=== PATIENT | female | born 1965 | race Caucasian/White ===

== ENCOUNTER 2021-10-24 02:29 | Inpatient (IN) | payer OTHER ==
[2021-10-24 03:03] LABS: #Basophils 0.1 thou/uL (0.0-0.2); #Eosinphils 0.4 thou/uL (0.0-0.7); #Lymphocytes 3.1 thou/uL (1.20-3.40); #Monocytes 0.9 thou/uL (0.11-0.59); #Neutrophils 5.7 thou/uL (1.40-6.50); %Basophils 1.1 % (0.0-1.0); %Eosinophils 3.8 % (0.0-10.0); %Lymphocytes 30.1 % (21.0-51.0); %Monocytes 9.1 % (0.0-10.0); %Neutrophils 55.9 % (42.0-75.0); Hemoglobin 11.6 g/dL (12.0-16.0); Mean Corpuscular HGB CONC 34.9 g/dL (32.0-36.0); Mean Corpuscular Volume 97.3 fL (78.0-98.0); Mean Platelet Volume 8.5 fL (7.4-10.4); Platelet Count 165 thou/uL (130-400); RBC Distribution Width 14.7 % (11.5-14.5); Red Blood Cell (RBC) Count 3.41 mill/uL (4.20-5.40); White Blood Cell (WBC) Count 10.3 thou/uL (4.8-10.8)
[2021-10-24] MEDS ORDERED: Boostrix 0.5 ML (Tdap) VIAL (>/=7 yrs of age) ONE (03:11)
[2021-10-24 03:25] LABS: ALT (SGPT) 127 U/L (8-55); AST (SGOT) 171 U/L (5-34); Acetaminophen Less than 10.0 mcg/mL (10.0-30.0); Albumin 3.6 g/dL (3.5-5.0); Alcohol 288 mg/dL (Less than 10); Alkaline Phosphatase 160 U/L (40-110); Anion Gap 17 mmol/L (10-20); BUN (Urea Nitrogen) 19 mg/dL (9.8-20.1); Bilirubin, Total 0.8 mg/dL (0.2-1.2); Calc. Creatinine Clearance 0 mL/min (70-130); Calcium 8.6 mg/dL (7.8-10.44); Carbon Dioxide 14 mmol/L (22-29); Chloride 104 mmol/L (98-107); Estimated GFR 49; Globulin 5.3 g/dL (2.4-3.5); Glucose 127 mg/dL (70-105); Potassium 3.7 mmol/L (3.5-5.1); Protein, Total 8.9 g/dL (6.0-8.3); Salicylate Less than 8.0 mg/dL (15.0-30.0); Sodium 131 mmol/L (136-145)
[2021-10-24] MEDS ORDERED: Ondansetron PF 4 MG/2 ML Vial ONE ×2 (03:50→03:52)
[2021-10-24] MEDS ORDERED: Morphine 4 MG/ML VIAL ONE (03:50)
[2021-10-24] MEDS ORDERED: Fentanyl 100 MCG/2 ML VIAL ONE (03:51)
[2021-10-24] MEDS ORDERED: hydrALAZINE 20 MG/ML VIAL SLOW IVP PRN (03:52)
[2021-10-24] MEDS ORDERED: traMADol HCl 50 MG TAB PO PRN (03:55)
[2021-10-24] MEDS ORDERED: Sodium Chloride 0.9% 1,000 ML IV SCH ×2 (04:00→16:15)
[2021-10-24] MEDS ORDERED: Acetaminophen 500 MG TAB ONE (04:31)
[2021-10-24] MEDS: Oxazepam 10 MG CAP PO SCH ×2 (05:24→14:22)
[2021-10-24] MEDS ORDERED: traMADol HCl 50 MG TAB PO SCH (06:00)
[2021-10-24] MEDS ORDERED: Acetaminophen 500 MG TAB PO SCH (06:00)
[2021-10-24 06:01] VITALS: BMI 26.4
[2021-10-24] MEDS: Morphine 2 MG/ML VIAL SLOW IVP PRN ×5 (06:05→17:14)
[2021-10-24 07:26] LABS: SARS-CoV-2 NAA Rapid Test Not Detected (NotDetected)
[2021-10-24] MEDS: Folic Acid 1 MG TAB PO SCH (08:23)
[2021-10-24] MEDS: Thiamine 100 MG TAB PO SCH (08:23)
[2021-10-24] MEDS: Senokot S 8.6-50 MG TAB PO SCH ×2 (08:23→21:25)
[2021-10-24] MEDS: Polyethylene Glycol 3350 17 GM Packet PO SCH (08:24)
[2021-10-24] MEDS: Cyclobenzaprine 10 MG TAB PO PRN (08:24)
[2021-10-24] MEDS: Gabapentin 300 MG CAP PO SCH ×3 (08:24→21:25)
[2021-10-24] MEDS ORDERED: Famotidine 20 MG TAB PO SCH (09:00)
[2021-10-24] MEDS: Acetaminophen/Codeine 30-300mg Tablet PO SCH ×3 (11:29→23:54)
[2021-10-24] MEDS: Acetaminophen 325 MG TAB PO SCH ×3 (11:30→23:54)
[2021-10-24] MEDS ORDERED: Acetaminophen/Codeine 30-300mg Tablet PO SCH (12:00)
[2021-10-24] MEDS ORDERED: Lorazepam 1 MG TAB PO SCH (12:15)
[2021-10-24] MEDS ORDERED: Iopamidol-370 76% 500 ML 1 ML ONE (14:28)
[2021-10-24] MEDS ORDERED: Lorazepam 0.5 MG TAB PO PRN (16:14)
[2021-10-24] MEDS: Ondansetron PF 4 MG/2 ML Vial IVP PRN (21:28)
[2021-10-24] MEDS: Heparin 5,000 UNITS/ML VIAL SC SCH (21:28)
[2021-10-24] MEDS: OLANZapine 5 MG TAB PO SCH (21:28)
[2021-10-25] MEDS: Acetaminophen 325 MG TAB PO SCH ×4 (05:25→23:28)
[2021-10-25] MEDS: Acetaminophen/Codeine 30-300mg Tablet PO SCH ×4 (05:28→23:28)
[2021-10-25 06:10] LABS: #Eosinphils 0.3 thou/uL (0.0-0.7); #Lymphocytes 1.6 thou/uL (1.20-3.40); #Monocytes 0.5 thou/uL (0.11-0.59); #Neutrophils 2.9 thou/uL (1.40-6.50); %Basophils 0.6 % (0.0-1.0); %Eosinophils 5.2 % (0.0-10.0); %Lymphocytes 30.3 % (21.0-51.0); %Monocytes 9.1 % (0.0-10.0); %Neutrophils 54.9 % (42.0-75.0); Hemoglobin 10.4 g/dL (12.0-16.0); Mean Corpuscular HGB CONC 32.6 g/dL (32.0-36.0); Mean Corpuscular Hemoglobin 33.2 pg (27.0-31.0); Mean Platelet Volume 9.3 fL (7.4-10.4); Platelet Count 114 thou/uL (130-400); RBC Distribution Width 14.6 % (11.5-14.5); Red Blood Cell (RBC) Count 3.13 mill/uL (4.20-5.40); White Blood Cell (WBC) Count 5.2 thou/uL (4.8-10.8)
[2021-10-25 06:28] LABS: Phosphorus 3.2 mg/dL (2.3-4.7)
[2021-10-25 06:32] LABS: BUN (Urea Nitrogen) 21 mg/dL (9.8-20.1); Calc. Creatinine Clearance 61 mL/min (70-130); Carbon Dioxide 14 mmol/L (22-29); Chloride 104 mmol/L (98-107); Estimated GFR 65; Glucose 113 mg/dL (70-105); Potassium 4.9 mmol/L (3.5-5.1); Sodium 128 mmol/L (136-145)
[2021-10-25 06:41] LABS: Anion Gap 15 mmol/L (10-20)
[2021-10-25] MEDS ORDERED: Famotidine 20 MG TAB PO SCH (09:00)
[2021-10-25] MEDS ORDERED: Gabapentin 300 MG CAP PO SCH (09:00)
[2021-10-25] MEDS: Gabapentin 300 MG CAP PO SCH ×2 (10:05→21:37)
[2021-10-25] MEDS: Heparin 5,000 UNITS/ML VIAL SC SCH ×2 (10:05→21:35)
[2021-10-25] MEDS: Thiamine 100 MG TAB PO SCH (10:05)
[2021-10-25] MEDS: Polyethylene Glycol 3350 17 GM Packet PO SCH (10:05)
[2021-10-25] MEDS: Senokot S 8.6-50 MG TAB PO SCH ×2 (10:05→21:38)
[2021-10-25] MEDS: Folic Acid 1 MG TAB PO SCH (10:06)
[2021-10-25] MEDS: Loratadine 10 MG TAB PO SCH (10:06)
[2021-10-25] MEDS: Acetaminophen/Codeine 30-300mg Tablet PO PRN ×2 (12:03→17:38)
[2021-10-25] MEDS ORDERED: Ibuprofen 600 MG TAB PO SCH (14:00)
[2021-10-25] MEDS: Ibuprofen 200 MG TAB PO SCH ×2 (14:37→21:38)
[2021-10-25] MEDS: traMADol HCl 50 MG TAB PO SCH ×2 (14:38→21:38)
[2021-10-25] MEDS: Oxazepam 10 MG CAP PO SCH ×2 (14:40→21:36)
[2021-10-25] MEDS: cloNIDine 0.1 MG TAB PO SCH ×2 (14:41→21:37)
[2021-10-25] MEDS: OLANZapine 5 MG TAB PO SCH (21:38)
[2021-10-26] MEDS: Acetaminophen 325 MG TAB PO SCH ×3 (05:20→18:24)
[2021-10-26] MEDS: Acetaminophen/Codeine 30-300mg Tablet PO SCH ×3 (05:20→18:25)
[2021-10-26] MEDS: Ibuprofen 200 MG TAB PO SCH (05:21)
[2021-10-26] MEDS: Oxazepam 10 MG CAP PO SCH ×3 (05:21→21:52)
[2021-10-26] MEDS: traMADol HCl 50 MG TAB PO SCH ×3 (05:21→21:53)
[2021-10-26] MEDS: cloNIDine 0.1 MG TAB PO SCH ×3 (05:22→21:52)
[2021-10-26 06:21] LABS: #Eosinphils 0.2 thou/uL (0.0-0.7); #Lymphocytes 1.2 thou/uL (1.20-3.40); #Monocytes 0.4 thou/uL (0.11-0.59); #Neutrophils 2.6 thou/uL (1.40-6.50); %Basophils 0.7 % (0.0-1.0); %Eosinophils 4.6 % (0.0-10.0); %Lymphocytes 27.2 % (21.0-51.0); %Monocytes 9.3 % (0.0-10.0); %Neutrophils 58.2 % (42.0-75.0); Hemoglobin 9.3 g/dL (12.0-16.0); Mean Corpuscular HGB CONC 32.7 g/dL (32.0-36.0); Mean Platelet Volume 8.9 fL (7.4-10.4); Platelet Count 108 thou/uL (130-400); RBC Distribution Width 14.2 % (11.5-14.5); Red Blood Cell (RBC) Count 2.81 mill/uL (4.20-5.40); White Blood Cell (WBC) Count 4.4 thou/uL (4.8-10.8)
[2021-10-26 06:38] LABS: Anion Gap 15 mmol/L (10-20); BUN (Urea Nitrogen) 25 mg/dL (9.8-20.1); Calc. Creatinine Clearance 44 mL/min (70-130); Calcium 8.2 mg/dL (7.8-10.44); Carbon Dioxide 19 mmol/L (22-29); Chloride 103 mmol/L (98-107); Estimated GFR 43; Glucose 146 mg/dL (70-105); Magnesium 2.1 mg/dL (1.6-2.6); Phosphorus 4.2 mg/dL (2.3-4.7); Potassium 3.9 mmol/L (3.5-5.1); Sodium 133 mmol/L (136-145)
[2021-10-26] MEDS: Heparin 5,000 UNITS/ML VIAL SC SCH ×2 (08:32→21:54)
[2021-10-26] MEDS: Cyclobenzaprine 10 MG TAB PO PRN ×2 (08:32→16:21)
[2021-10-26] MEDS: Loratadine 10 MG TAB PO SCH (08:32)
[2021-10-26] MEDS: Senokot S 8.6-50 MG TAB PO SCH ×2 (08:33→21:51)
[2021-10-26] MEDS: Gabapentin 300 MG CAP PO SCH ×2 (08:33→21:53)
[2021-10-26] MEDS: Folic Acid 1 MG TAB PO SCH (08:34)
[2021-10-26] MEDS: Polyethylene Glycol 3350 17 GM Packet PO SCH (08:34)
[2021-10-26] MEDS: Thiamine 100 MG TAB PO SCH (08:34)
[2021-10-26] MEDS ORDERED: Potassium Chloride 20 MEQ TAB PO SCH (09:15)
[2021-10-26] MEDS ORDERED: Sodium Phosphate 30 MMOL in Sodium Chloride 0.9% 250 ML 250 ML IVPB SCH (09:15)
[2021-10-26] MEDS: Acetaminophen/Codeine 30-300mg Tablet PO PRN ×2 (11:54→18:25)
[2021-10-26] MEDS ORDERED: Morphine 2 MG/ML VIAL SLOW IVP SCH (20:00)
[2021-10-26 20:01] LABS: Troponin I Less than 0.010 ng/mL (< 0.028)
[2021-10-26] MEDS: OLANZapine 5 MG TAB PO SCH (21:52)
[2021-10-26] MEDS: Melatonin 3 MG TAB PO SCH (21:52)
[2021-10-27] MEDS: Acetaminophen 325 MG TAB PO SCH ×5 (00:26→23:59)
[2021-10-27] MEDS: Acetaminophen/Codeine 30-300mg Tablet PO SCH ×5 (00:27→20:02)
[2021-10-27] MEDS: traMADol HCl 50 MG TAB PO SCH ×3 (05:48→22:12)
[2021-10-27] MEDS: Oxazepam 10 MG CAP PO SCH ×3 (05:48→22:13)
[2021-10-27] MEDS: cloNIDine 0.1 MG TAB PO SCH ×3 (05:48→22:12)
[2021-10-27 06:26] LABS: Anion Gap 13 mmol/L (10-20); BUN (Urea Nitrogen) 23 mg/dL (9.8-20.1); Calc. Creatinine Clearance 54 mL/min (70-130); Calcium 8.3 mg/dL (7.8-10.44); Carbon Dioxide 21 mmol/L (22-29); Chloride 105 mmol/L (98-107); Estimated GFR 56; Glucose 104 mg/dL (70-105); Magnesium 2.2 mg/dL (1.6-2.6); Phosphorus 3.6 mg/dL (2.3-4.7); Potassium 4.6 mmol/L (3.5-5.1); Sodium 134 mmol/L (136-145)
[2021-10-27] MEDS: Loratadine 10 MG TAB PO SCH (10:07)
[2021-10-27] MEDS: Heparin 5,000 UNITS/ML VIAL SC SCH ×2 (10:09→20:03)
[2021-10-27] MEDS: Polyethylene Glycol 3350 17 GM Packet PO SCH (10:09)
[2021-10-27] MEDS: Gabapentin 300 MG CAP PO SCH (10:09)
[2021-10-27] MEDS: Thiamine 100 MG TAB PO SCH (10:10)
[2021-10-27] MEDS: Senokot S 8.6-50 MG TAB PO SCH ×2 (10:10→20:04)
[2021-10-27] MEDS: Folic Acid 1 MG TAB PO SCH (10:10)
[2021-10-27] MEDS: Ondansetron PF 4 MG/2 ML Vial IVP PRN (10:17)
[2021-10-27] MEDS ORDERED: Magnesium Citrate 300 ML BOT PO SCH (11:15)
[2021-10-27] MEDS: Mineral Oil ENEMA PR SCH ×2 (15:17→17:20)
[2021-10-27] MEDS: Bisacodyl 10 MG SUPP PR SCH ×2 (15:29→20:03)
[2021-10-27] MEDS: Cyclobenzaprine 10 MG TAB PO PRN (20:02)
[2021-10-27] MEDS: OLANZapine 5 MG TAB PO SCH (20:04)
[2021-10-27] MEDS: Melatonin 3 MG TAB PO SCH (20:04)
[2021-10-28] MEDS: Acetaminophen/Codeine 30-300mg Tablet PO SCH ×5 (02:00→23:20)
[2021-10-28] MEDS: Acetaminophen 325 MG TAB PO SCH ×4 (05:00→23:20)
[2021-10-28] MEDS: Bisacodyl 10 MG SUPP PR SCH ×3 (05:00→20:46)
[2021-10-28] MEDS: traMADol HCl 50 MG TAB PO SCH ×3 (05:00→23:20)
[2021-10-28] MEDS: cloNIDine 0.1 MG TAB PO SCH ×3 (05:06→23:20)
[2021-10-28] MEDS: Oxazepam 10 MG CAP PO SCH ×3 (05:06→23:20)
[2021-10-28] MEDS: Cyclobenzaprine 10 MG TAB PO PRN (06:09)
[2021-10-28 07:59] LABS: #Basophils 0.1 thou/uL (0.0-0.2); #Eosinphils 0.2 thou/uL (0.0-0.7); #Lymphocytes 1.3 thou/uL (1.20-3.40); #Monocytes 0.5 thou/uL (0.11-0.59); %Eosinophils 3.5 % (0.0-10.0); %Lymphocytes 26.4 % (21.0-51.0); %Monocytes 9.3 % (0.0-10.0); %Neutrophils 59.9 % (42.0-75.0); Hemoglobin 9.7 g/dL (12.0-16.0); Mean Corpuscular HGB CONC 31.9 g/dL (32.0-36.0); Mean Corpuscular Hemoglobin 32.9 pg (27.0-31.0); Mean Platelet Volume 8.9 fL (7.4-10.4); Platelet Count 154 thou/uL (130-400); RBC Distribution Width 14.6 % (11.5-14.5); Red Blood Cell (RBC) Count 2.94 mill/uL (4.20-5.40); White Blood Cell (WBC) Count 5.1 thou/uL (4.8-10.8)
[2021-10-28 08:17] LABS: Anion Gap 15 mmol/L (10-20); BUN (Urea Nitrogen) 25 mg/dL (9.8-20.1); Calc. Creatinine Clearance 56 mL/min (70-130); Calcium 8.4 mg/dL (7.8-10.44); Carbon Dioxide 20 mmol/L (22-29); Chloride 104 mmol/L (98-107); Estimated GFR 59; Glucose 102 mg/dL (70-105); Magnesium 2.5 mg/dL (1.6-2.6); Phosphorus 3.6 mg/dL (2.3-4.7); Sodium 134 mmol/L (136-145)
[2021-10-28] MEDS: Folic Acid 1 MG TAB PO SCH (10:37)
[2021-10-28] MEDS: Heparin 5,000 UNITS/ML VIAL SC SCH ×2 (10:38→20:47)
[2021-10-28] MEDS: Thiamine 100 MG TAB PO SCH (10:39)
[2021-10-28] MEDS: Polyethylene Glycol 3350 17 GM Packet PO SCH ×2 (10:39→10:55)
[2021-10-28] MEDS: Senokot S 8.6-50 MG TAB PO SCH ×2 (10:39→20:47)
[2021-10-28] MEDS: Loratadine 10 MG TAB PO SCH (10:43)
[2021-10-28] MEDS: Melatonin 3 MG TAB PO SCH (20:47)
[2021-10-28] MEDS: OLANZapine 5 MG TAB PO SCH (20:47)
[2021-10-29] MEDS: Cyclobenzaprine 10 MG TAB PO PRN (02:04)
[2021-10-29] MEDS: Acetaminophen/Codeine 30-300mg Tablet PO SCH ×4 (02:04→21:44)
[2021-10-29] MEDS: Bisacodyl 10 MG SUPP PR SCH ×2 (04:11→12:12)
[2021-10-29] MEDS: cloNIDine 0.1 MG TAB PO SCH ×3 (05:14→21:44)
[2021-10-29] MEDS: Acetaminophen 325 MG TAB PO SCH ×3 (05:15→18:06)
[2021-10-29] MEDS: Oxazepam 10 MG CAP PO SCH ×2 (05:16→21:44)
[2021-10-29] MEDS: traMADol HCl 50 MG TAB PO SCH (05:16)
[2021-10-29] MEDS: Heparin 5,000 UNITS/ML VIAL SC SCH ×2 (08:57→21:46)
[2021-10-29] MEDS: Folic Acid 1 MG TAB PO SCH (08:58)
[2021-10-29] MEDS: Thiamine 100 MG TAB PO SCH (08:58)
[2021-10-29] MEDS: Senokot S 8.6-50 MG TAB PO SCH ×2 (10:08→21:43)
[2021-10-29] MEDS: Polyethylene Glycol 3350 17 GM Packet PO SCH (10:08)
[2021-10-29] MEDS: Loratadine 10 MG TAB PO SCH (12:12)
[2021-10-29] MEDS ORDERED: Gabapentin 100 MG CAP PO SCH (21:00)
[2021-10-29] MEDS: Melatonin 3 MG TAB PO SCH (21:43)
[2021-10-29] MEDS: OLANZapine 5 MG TAB PO SCH (21:43)
[2021-10-30] MEDS: Acetaminophen 325 MG TAB PO SCH ×2 (00:32→05:53)
[2021-10-30] MEDS: Acetaminophen/Codeine 30-300mg Tablet PO SCH ×5 (02:45→21:22)
[2021-10-30] MEDS: cloNIDine 0.1 MG TAB PO SCH ×3 (05:53→21:25)
[2021-10-30] MEDS ORDERED: Gabapentin 300 MG CAP PO SCH (09:00)
[2021-10-30] MEDS: Loratadine 10 MG TAB PO SCH (09:11)
[2021-10-30] MEDS: Heparin 5,000 UNITS/ML VIAL SC SCH ×2 (09:11→21:26)
[2021-10-30] MEDS: Folic Acid 1 MG TAB PO SCH (09:11)
[2021-10-30] MEDS: Thiamine 100 MG TAB PO SCH (09:11)
[2021-10-30] MEDS: Oxazepam 10 MG CAP PO SCH ×2 (09:11→21:24)
[2021-10-30] MEDS: Polyethylene Glycol 3350 17 GM Packet PO SCH (09:12)
[2021-10-30] MEDS: Senokot S 8.6-50 MG TAB PO SCH ×2 (09:12→21:23)
[2021-10-30] MEDS ORDERED: Acetaminophen/Codeine 30-300mg Tablet PO PRN ×2 (10:51→10:58)
[2021-10-30] MEDS: Gabapentin 300 MG CAP PO SCH ×3 (11:26→21:23)
[2021-10-30] MEDS: OLANZapine 5 MG TAB PO SCH (21:24)
[2021-10-30] MEDS: Melatonin 3 MG TAB PO SCH (21:25)
[2021-10-31] MEDS: Acetaminophen/Codeine 30-300mg Tablet PO SCH ×4 (02:26→21:43)
[2021-10-31] MEDS: cloNIDine 0.1 MG TAB PO SCH ×3 (05:43→21:31)
[2021-10-31] MEDS: Thiamine 100 MG TAB PO SCH (08:31)
[2021-10-31] MEDS: Senokot S 8.6-50 MG TAB PO SCH ×2 (08:31→21:26)
[2021-10-31] MEDS: Gabapentin 300 MG CAP PO SCH ×3 (08:31→21:29)
[2021-10-31] MEDS: Loratadine 10 MG TAB PO SCH (08:31)
[2021-10-31] MEDS: Folic Acid 1 MG TAB PO SCH (08:31)
[2021-10-31] MEDS: Oxazepam 10 MG CAP PO SCH ×2 (08:31→21:29)
[2021-10-31] MEDS: Heparin 5,000 UNITS/ML VIAL SC SCH ×3 (08:31→21:30)
[2021-10-31] MEDS: Polyethylene Glycol 3350 17 GM Packet PO SCH (08:32)
[2021-10-31] MEDS: Melatonin 3 MG TAB PO SCH (21:29)
[2021-10-31] MEDS: OLANZapine 5 MG TAB PO SCH (21:44)
[2021-11-01] MEDS: Acetaminophen/Codeine 30-300mg Tablet PO SCH ×4 (07:23→21:48)
[2021-11-01] MEDS: cloNIDine 0.1 MG TAB PO SCH ×3 (07:24→22:00)
[2021-11-01] MEDS: Oxazepam 10 MG CAP PO SCH ×2 (08:48→21:50)
[2021-11-01] MEDS: Gabapentin 300 MG CAP PO SCH ×3 (08:49→21:49)
[2021-11-01] MEDS: Heparin 5,000 UNITS/ML VIAL SC SCH ×2 (08:49→21:48)
[2021-11-01] MEDS: Thiamine 100 MG TAB PO SCH (08:49)
[2021-11-01] MEDS: Folic Acid 1 MG TAB PO SCH (08:49)
[2021-11-01] MEDS: Senokot S 8.6-50 MG TAB PO SCH ×2 (08:49→21:50)
[2021-11-01] MEDS: Loratadine 10 MG TAB PO SCH (08:49)
[2021-11-01] MEDS: Polyethylene Glycol 3350 17 GM Packet PO SCH (08:50)
[2021-11-01] MEDS: Cyclobenzaprine 10 MG TAB PO PRN (18:47)
[2021-11-01] MEDS: OLANZapine 5 MG TAB PO SCH (21:50)
[2021-11-01] MEDS: Melatonin 3 MG TAB PO SCH (21:50)
[2021-11-02] MEDS: Acetaminophen/Codeine 30-300mg Tablet PO SCH ×4 (01:54→20:48)
[2021-11-02] MEDS: HYDROcodone/Acetaminophen 7.5/325 mg Tablet PO PRN (06:03)
[2021-11-02] MEDS: cloNIDine 0.1 MG TAB PO SCH ×3 (06:03→20:47)
[2021-11-02] MEDS: Oxazepam 10 MG CAP PO SCH ×2 (08:44→20:47)
[2021-11-02] MEDS: Senokot S 8.6-50 MG TAB PO SCH ×2 (08:45→20:48)
[2021-11-02] MEDS: Polyethylene Glycol 3350 17 GM Packet PO SCH (08:46)
[2021-11-02] MEDS: Gabapentin 300 MG CAP PO SCH ×3 (08:47→20:46)
[2021-11-02] MEDS: Folic Acid 1 MG TAB PO SCH (08:47)
[2021-11-02] MEDS: Thiamine 100 MG TAB PO SCH (08:48)
[2021-11-02] MEDS: Loratadine 10 MG TAB PO SCH (08:49)
[2021-11-02] MEDS: Heparin 5,000 UNITS/ML VIAL SC SCH ×2 (08:49→20:47)
[2021-11-02] MEDS: Cyclobenzaprine 10 MG TAB PO PRN (12:04)
[2021-11-02] MEDS: Melatonin 3 MG TAB PO SCH (20:47)
[2021-11-02] MEDS: OLANZapine 5 MG TAB PO SCH (20:47)
[2021-11-03] MEDS: Acetaminophen/Codeine 30-300mg Tablet PO SCH ×4 (03:35→20:33)
[2021-11-03] MEDS: Folic Acid 1 MG TAB PO SCH (09:03)
[2021-11-03] MEDS: Heparin 5,000 UNITS/ML VIAL SC SCH ×2 (09:03→20:35)
[2021-11-03] MEDS: Polyethylene Glycol 3350 17 GM Packet PO SCH (09:04)
[2021-11-03] MEDS: Oxazepam 10 MG CAP PO SCH ×2 (09:04→20:34)
[2021-11-03] MEDS: Thiamine 100 MG TAB PO SCH (09:04)
[2021-11-03] MEDS: Senokot S 8.6-50 MG TAB PO SCH ×2 (09:04→20:43)
[2021-11-03] MEDS: Gabapentin 300 MG CAP PO SCH ×3 (09:04→20:34)
[2021-11-03] MEDS: Loratadine 10 MG TAB PO SCH (09:04)
[2021-11-03] MEDS: cloNIDine 0.1 MG TAB PO SCH ×3 (15:13→20:35)
[2021-11-03] MEDS: Cyclobenzaprine 10 MG TAB PO PRN (20:34)
[2021-11-03] MEDS: Melatonin 3 MG TAB PO SCH (20:35)
[2021-11-03] MEDS: OLANZapine 5 MG TAB PO SCH (20:36)
[2021-11-03] MEDS: HYDROcodone/Acetaminophen 7.5/325 mg Tablet PO PRN (23:45)
[2021-11-04] MEDS: Acetaminophen/Codeine 30-300mg Tablet PO SCH ×4 (03:13→21:34)
[2021-11-04] MEDS: cloNIDine 0.1 MG TAB PO SCH ×3 (05:59→21:37)
[2021-11-04] MEDS: Polyethylene Glycol 3350 17 GM Packet PO SCH (08:20)
[2021-11-04] MEDS: Oxazepam 10 MG CAP PO SCH ×2 (08:21→21:38)
[2021-11-04] MEDS: Senokot S 8.6-50 MG TAB PO SCH ×2 (08:21→21:37)
[2021-11-04] MEDS: Gabapentin 300 MG CAP PO SCH ×3 (08:21→21:36)
[2021-11-04] MEDS: Folic Acid 1 MG TAB PO SCH (08:21)
[2021-11-04] MEDS: Loratadine 10 MG TAB PO SCH (08:22)
[2021-11-04] MEDS: Heparin 5,000 UNITS/ML VIAL SC SCH ×2 (08:23→21:31)
[2021-11-04] MEDS: Thiamine 100 MG TAB PO SCH (08:23)
[2021-11-04] MEDS: HYDROcodone/Acetaminophen 7.5/325 mg Tablet PO PRN (08:35)
[2021-11-04] MEDS: Cyclobenzaprine 10 MG TAB PO PRN ×2 (14:19→21:39)
[2021-11-04] MEDS: Melatonin 3 MG TAB PO SCH (21:38)
[2021-11-04] MEDS: OLANZapine 5 MG TAB PO SCH (21:38)
[2021-11-05] MEDS: Acetaminophen/Codeine 30-300mg Tablet PO SCH ×3 (02:23→13:32)
[2021-11-05] MEDS: cloNIDine 0.1 MG TAB PO SCH ×2 (05:55→13:29)
[2021-11-05] MEDS: Gabapentin 300 MG CAP PO SCH ×2 (08:12→13:33)
[2021-11-05] MEDS: Oxazepam 10 MG CAP PO SCH (08:12)
[2021-11-05] MEDS: Thiamine 100 MG TAB PO SCH (08:13)
[2021-11-05] MEDS: Senokot S 8.6-50 MG TAB PO SCH (08:15)
[2021-11-05] MEDS: Folic Acid 1 MG TAB PO SCH (08:15)
[2021-11-05] MEDS: Polyethylene Glycol 3350 17 GM Packet PO SCH (08:15)
[2021-11-05] MEDS: Heparin 5,000 UNITS/ML VIAL SC SCH (08:16)
[2021-11-05] MEDS: Loratadine 10 MG TAB PO SCH (08:16)
[2021-11-05 15:57] VITALS: BP 137/86; TEMP 98.1
[2021-11-05] MEDS: Cyclobenzaprine 10 MG TAB PO PRN (16:46)
== END 2021-11-05 19:56 | disposition home or self-care (01) | DRG 536 ==
LOC: ERS 02:29 → SJJU 03:52
PROVIDERS: ADMIT Specialist; ATTEND Surgery
DX: S32.82XA Multiple fractures of pelvis without disruption of pelvic ring, initial encounter for closed fracture (principal); M48.54XA Collapsed vertebra, not elsewhere classified, thoracic region, initial encounter for fracture; N17.9 Acute kidney failure, unspecified; E87.1 Hypo-osmolality and hyponatremia; I13.0 Hypertensive heart and chronic kidney disease with heart failure and stage 1 through stage 4 chronic kidney disease, or unspecified chronic kidney disease; Z20.822 Contact with and (suspected) exposure to COVID-19; Z23 Encounter for immunization; S13.4XXA Sprain of ligaments of cervical spine, initial encounter; F10.129 Alcohol abuse with intoxication, unspecified; Y90.8 Blood alcohol level of 240 mg/100 ml or more; G89.29 Other chronic pain; M54.9 Dorsalgia, unspecified; I50.9 Heart failure, unspecified; J44.9 Chronic obstructive pulmonary disease, unspecified; F17.210 Nicotine dependence, cigarettes, uncomplicated; F12.10 Cannabis abuse, uncomplicated; E03.9 Hypothyroidism, unspecified; N18.9 Chronic kidney disease, unspecified; I25.10 Atherosclerotic heart disease of native coronary artery without angina pectoris; R05.9 Cough, unspecified; R07.89 Other chest pain; V44.5XXA Car driver injured in collision with heavy transport vehicle or bus in traffic accident, initial encounter; Y92.410 Unspecified street and highway as the place of occurrence of the external cause; Z59.00 Homelessness unspecified; Z99.81 Dependence on supplemental oxygen; Z90.49 Acquired absence of other specified parts of digestive tract; Z90.710 Acquired absence of both cervix and uterus; Z79.899 Other long term (current) drug therapy; Z88.6 Allergy status to analgesic agent; Z88.4 Allergy status to anesthetic agent; Z88.3 Allergy status to other anti-infective agents; Z88.0 Allergy status to penicillin; Z88.8 Allergy status to other drugs, medicaments and biological substances
CPT/HCPCS: 36415; 36416; 70450; 71045; 71260; 72125; 72141; 74022; 74177; 80048; 80053; 80307; 83605; 83735; 83880; 84100; 84484; 85025; 86850; 86900; 86901; 87811; 90471; 90715; 94640; 96374; 96375; G0390; J1644; J2270; J2405; J3010; J7050; J7620; Q9967; U0002